=== PATIENT | female | born 1945 | race Caucasian/White ===

== ENCOUNTER → 2018-08-03 | Outpatient (CLI) | payer MEDICARE ==
[2014-06-25 09:28] VITALS: BP 123/63
[~2018-08-03] MED LIST: ALPR0.5T PO; AMLO5TAB10 PO; ATOR20TA58 PO; BENA10TA4 PO; BENA20TA4 PO; MELO15TA23 PO; NAPR-695 PO; PARO10TA57 PO
--- NOTE | 2018-08-03 11:03 | KCIC ---
MRI Lumbar Spine without contrast History: Right lower extremity radiculopathy, low back pain into the right buttock and leg for several months Technique: Multiplanar, multi sequential noncontrast MR imaging was performed of the lumbar spine. Comparison: None Findings: Lumbar vertebral body stature is overall maintained. There is very minimal posterior subluxation L2 relative to L3, negligible posterior subluxation L1 relative L2. There is advanced degenerative disc disease at L5-S1, mild to moderate degenerative disc disease L1-L2, L2-3, L4-5, minimally L3-4. Conus terminates at L1. There is trace L2-3, L1-2, L5-S1 endplate edema likely reactive/degenerative in etiology. There are posterior annular tears L2-3 and L4-5. There is small likely Tarlov cyst at S2 about 0.4 cm. There is 2 cm exophytic T2 hyperintense lesion of the visualized right kidney probably a cyst, not fully evaluated. L1-L2: There is a minimal disc osteophyte complex and bulge. There is mild buckling of the ligamentum flavum and facet degenerative change. There is mild prominence of posterior epidural fat centrally. Neural foramina and spinal canal are overall adequate. L2-L3: There is mild buckling of the ligamentum flavum and right greater than left facet degenerative change. There is mild prominence of posterior epidural fat centrally. There is minimal disc osteophyte complex and bulge superimposed on the posteriorly subluxed L2 vertebral body margin, mild indentation upon the ventral thecal sac greater in the left lateral recess. There is likely component of very small extrusion extending below the intervertebral disc space in the far lateral recess about 2 to 3 mm AP by 3 mm CC by 5 to 6 mm transverse. There is [id number] narrowing of the far left lateral recess, mild narrowing of the far right lateral recess. There is minimal narrowing of the right neural foramen, left neural foramen overall adequate. Disc osteophyte complex is near proximal extraforaminal left L2 nerve root without significant impingement. L3-L4: There is mild buckling of the ligamentum flavum and right greater than left facet degenerative change. There is mild prominence of posterior epidural fat centrally. There is negligible bulge. Spinal canal and neural foramina are overall adequate. L4-L5: There is mild facet degenerative change and buckling of the ligamentum flavum. There is posterior bulge, superimposed shallow more central protrusion. There is mild narrowing of the far lateral recesses greater on the left. Left neural foramen is adequate. There is moderate narrowing of the right neural foramen with contact posterior surface of the exiting right L4 nerve root by facet and ligamentum flavum. L5-S1: There is disc osteophyte complex, superimposed broad likely partially calcified protrusion/contained extrusion greater in the left lateral recess. There is contact of the descending S1 nerve roots in the lateral recesses greater on the left, overall mild left lateral recess stenosis. There is mild facet degenerative change. There is severe bilateral neural foramina compromise by disc osteophyte complex and facet degenerative change with impingement of the exiting L5 nerve roots bilaterally. Impression: 1. There is multilevel lumbar degenerative disc disease greatest at L5-S1. 2. There is mild to moderate left lateral recess stenosis L2-3, mild narrowing of the far lateral recesses greater on the left at L4-5 and of the left lateral recess at L5-S1. 3. There is severe neural foramina compromise bilaterally at L5-S1 with impingement of the exiting L5 nerve roots, moderate narrowing on the right at L4-5. 4. There is very minimal posterior subluxation L2 relative to L3 and to lesser degree of L1 relative to L2. 5. Not fully included, T2 hyperintense lesion right kidney is statistically most likely a cyst. Electronically signed by: Ziyad uMeller MD (08/03/2018 11:00 AM) [facility]
== END | disposition home or self-care (01) ==
LOC: KCIC MRI 09:40
DX: M51.37 Other intervertebral disc degeneration, lumbosacral region (principal); M48.07 Spinal stenosis, lumbosacral region; M43.5X6 Other recurrent vertebral dislocation, lumbar region; M25.78 Osteophyte, vertebrae; M47.817 Spondylosis without myelopathy or radiculopathy, lumbosacral region; M54.10 Radiculopathy, site unspecified
CPT/HCPCS: 72148

== ENCOUNTER → 2018-08-17 | Outpatient (CLI) | payer MEDICARE ==
[2014-06-25 09:28] VITALS: BP 123/63
[~2018-08-17] MED LIST changes: +IOHEXOL 180 MG/ML 10 ML VIAL. ONE; +methylPREDNISolone ACETATE 40 MG/ML VIAL. ONE; +methylPREDNISolone ACETATE 80 MG/ML VIAL. ONE
--- NOTE | 2018-08-18 02:47 | PAIN ---
DATE OF SERVICE: 08/17/2018 INITIAL CONSULTATION FOR PAIN CLINIC CHIEF COMPLAINT: Low back and right lower extremity pain. HISTORY OF PRESENT ILLNESS: This is a 73-year-old female who presents with history of pain for many years in the low back, right lower extremity, worse over the past 6-7 months without any specific injury or action that she is aware of, but increasing pain with daily activities, walking especially and sitting for a prolonged period. The pain is across the low back, into the right lower extremity, posterior gluteus, posterior thigh, posterior calf, into the foot and all the toes on the right side, mostly posteriorly and some in the medial and lateral aspect of the lower leg as well. The patient reports it is sharp, stabbing, throbbing, shooting, changes during the day, worse with activity, worse with walking, standing, sitting for prolonged periods, intermittent in intensity, but always present, radiating to the right leg and none on the left leg. The patient describes the pain in the back is aching, cramping and worse at night. The patient reports it awakens her from sleep at least once or twice a night. It does not affect her bowel or bladder control or ability to walk, but does fatigue very easily with ambulation and sitting for prolonged periods. 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 The patient reports her disability rating from 0 to 10, 10 being the worst, is an 8 in all categories, family and home responsibility, recreation, social activity, occupation and sexual behavior, life support activities and self-care activities. The patient did have MRI scan of the lumbar spine showing multilevel degenerative disk disease, greatest at L5-S1 with moderate left lateral recess stenosis L2-L3, mild narrowing of the far lateral recesses greater on the left L4-L5 and on the left lateral recess at L5-S1 with severe neural foraminal compromise bilaterally at L5-S1 with impingement of the exiting L5 nerve root, moderate narrowing on the right at L4-L5. The patient reports no loss of motor function. Again, no specific pain in the left leg. PAST MEDICAL HISTORY: Significant for previous lung cancer with chemotherapy and radiation about 4 years ago, cigarette smoking, hypertension, arthritis. PREVIOUS SURGERIES: Include cataract extraction as well as cholecystectomy. CURRENT MEDICATIONS: Include atorvastatin, amlodipine, Paxil and meloxicam. ALLERGIES: THE PATIENT IS ALLERGIC TO CODEINE, WHICH CAUSES NAUSEA AND VOMITING. FAMILY HISTORY: Significant for multiple types of cancer. SOCIAL HISTORY: The patient drinks alcohol once very rarely, maybe once or twice a year. Quit smoking 4 years ago, smoked 2 packs a day prior to that. Does not use any illegal, illicit or recreational drugs. 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 REVIEW OF SYSTEMS: The patient's review of systems is positive for those items mentioned in history of present illness. All systems reviewed and otherwise negative. It is complete, full and well documented on the patient's chart. PHYSICAL EXAMINATION: VITAL SIGNS: The patient's blood pressure is 126/73, pulse 90, respirations 18, temperature is 97.9 degrees Fahrenheit. Height is 5 feet 6 inches, weight is 163 pounds. GENERAL: The patient is awake, alert, oriented, appropriate, very pleasant demeanor. HEENT: Head shows normocephalic, atraumatic. Extraocular movements are intact, symmetrical. Oral cavity: Mucous membranes are moist and pink. Dentition is intact. NECK: Shows anterior throat supple without palpable lymphadenopathy noted. Swallow reflex symmetrical. CHEST: Shows normal on inspection. Breath sounds clear to auscultation bilaterally. HEART: Shows S1, S2 clear. No murmurs auscultated. ABDOMEN: Soft, nontender, nondistended. No palpable organomegaly is noted. No rebound or guarding demonstrated. BACK: Shows spine grossly in the midline. Normal appearing thoracic kyphosis and lumbar lordotic curvature. Lumbar paraspinous muscle shows symmetrical on inspection, on palpation shows some moderate tenderness on the lower lumbar distribution, more on the right than the left with palpation, but is symmetrical without evidence of atrophy or hypertrophy. No tenderness over the spinous processes, sacrum or sacroiliac regions. The patient has good rotational motion of lumbar spine both laterally greater than 10 degrees right and left as well as extension greater than 10 degrees, forward flexion 45 degrees without significant pain reported. EXTREMITIES: Lower extremities show deep tendon reflexes at 2+ in the patellar, 1+ tendo calcaneus tendons. Motor exam is strong with 5/5 dorsiflexion, extension, quadriceps and hamstring flexion equal. Peripheral pulses are 1+ posterior tibia. No peripheral edema is noted bilaterally. Straight leg raising noted to be mildly positive about 45 degrees leg raise on the right, but not on the left. Gaenslen's and Carson's maneuvers are negative bilaterally. The patient is able to stand, stand on her toes without difficulty or loss of balance, walks with normal appearing gait, does not appear to favor the right or left lower extremity significantly, not using any assistive devices such as canes or walkers to ambulate. The patient's skin shows warm and dry, good turgor. No edema. No sores, rashes or bruising throughout. IMPRESSION: 1. This is a 73-year-old female with a long history of low back and right lower extremity pain, worse over the past 6-7 months in a radicular fashion. 2. MRI scan of lumbar spine as noted. 3. Hypertension. 4. Arthritis. 5. History of lung cancer. PLAN: Options were discussed with the patient including conservative medical management, physical therapy, interventional techniques. She would like to pursue with interventional techniques. We discussed a lumbar epidural steroid injection using descriptions as well as anatomical models to describe the procedure. Risks were then discussed including, but not limited to, bleeding, infection, possibility of epidural hematoma and subsequent neurological compromise, dural puncture, headaches, spinal cord and/or nerve damage, side effects of steroid medication and poor results regarding pain control. The patient understands and wished to proceed. The patient will return to the clinic in approximately 2 weeks for followup. She was counseled as to return appointment, activity level and side effects to be aware of. DIAGNOSES: Lumbar radiculopathy with lumbar degenerative disk disease, lumbar spinal stenosis. PROCEDURE: Lumbar epidural steroid injection, translaminar approach at L5-S1 level using C-arm fluoroscopic guidance under sterile prep and drape using local anesthetic. MEDICATION INJECTED: A total of 120 mg Depo-Medrol plus 10 mL of preservative-free normal saline and 2 mL of contrast. CONDITION AT DISCHARGE: Stable. The patient tolerated the procedure well, had no complications. JAYCEE GARCIA MD DR: ELOISA/carol JOB#: [id number] / [id number] ecc ELISA VALENCIA
== END | disposition home or self-care (01) ==
LOC: PNCL 08:14
PROVIDERS: ATTEND Anesthesiology
DX: M51.16 Intervertebral disc disorders with radiculopathy, lumbar region (principal); M48.061 Spinal stenosis, lumbar region without neurogenic claudication; I10 Essential (primary) hypertension; M19.90 Unspecified osteoarthritis, unspecified site; Z85.118 Personal history of other malignant neoplasm of bronchus and lung; Z90.49 Acquired absence of other specified parts of digestive tract; Z79.899 Other long term (current) drug therapy; Z88.5 Allergy status to narcotic agent; Z72.89 Other problems related to lifestyle; Z87.891 Personal history of nicotine dependence; Z98.49 Cataract extraction status, unspecified eye; Z96.1 Presence of intraocular lens
CPT/HCPCS: 62323; J1030; J1040; Q9965

== ENCOUNTER → 2018-08-31 | Outpatient (CLI) | payer MEDICARE ==
[2014-06-25 09:28] VITALS: BP 123/63
--- NOTE | 2018-09-01 03:49 | PAIN ---
DATE OF SERVICE: 08/31/2018 PROGRESS NOTE FOR PAIN CLINIC: DIAGNOSES: Lumbar radiculopathy with lumbar spinal stenosis, lumbar degenerative disk disease. HISTORY OF PRESENT ILLNESS: The patient is a 73-year-old female who returns for followup status post lumbar epidural injection x 1. The patient reports about 50% improvement in the low back and right lower extremity. The patient reports still pain in the hip and thigh, into the lower leg as well as the calf with walking and standing. The patient reports also with prolonged sitting, it is noticeable. The patient reports it is average about a 5 on a scale of 10 over the past week, worst is an 8, least is a 1 and is about a 5 today. The patient reports no new motor or sensory deficits, describes the pain as cramping and becoming constant with sitting or prolonged walking in the right leg. No new motor or sensory deficits, no new bowel or bladder incontinence or other complaints. PHYSICAL EXAMINATION: VITAL SIGNS: The patient's blood pressure is 120/67, pulse 74, respirations are 18, temperature is 98.1 degrees Fahrenheit, height is 5 feet 6 inches, weight is 165 pounds. GENERAL: The patient is awake, alert, oriented, appropriate, very pleasant demeanor. HEENT: Head shows normocephalic, atraumatic. Extraocular movements are intact and symmetrical. Oral cavity shows mucous membranes moist and pink. Dentition is intact. NECK: Shows anterior throat supple without palpable lymphadenopathy noted. Swallow reflex symmetrical. Neck shows full rotational motion of cervical spine, both laterally as well as extension and flexion without difficulty. CHEST: Shows normal with inspection. Breath sounds clear to auscultation bilaterally. HEART: Shows S1, S2 clear. No murmurs auscultated. ABDOMEN: Soft, nontender, nondistended. No palpable organomegaly is noted. BACK: Shows spine grossly in the midline, normal-appearing cervical lordotic curvature, thoracic kyphotic curvature and lumbar lordotic curvature. Lumbar paraspinous muscle shows symmetrical on inspection, with palpation shows some moderate tenderness diffusely bilaterally, but only diffusely in the low lumbar distribution without radiation. The patient shows good rotational motion of lumbar spine as well with greater than 10 degrees, right and left lateral rotation, extension greater than 10 degrees, forward flexion 45 degrees without pain reported. EXTREMITIES: The patient's lower extremities show deep tendon reflexes 2+ in the patellar, 1+ tendo-calcaneus tendons are equal. Motor exam is strong with 5/5 dorsiflexion and extension. Peripheral pulses are 1+ posterior tibia. No peripheral edema is noted. Options were discussed with the patient. The patient's old chart was reviewed as her current medication regimen updated. Current review of systems updated today as well. We will proceed with a second lumbar epidural steroid injection today with fluoroscopic guidance. Risks were again discussed including, but not limited to bleeding, infection, possibility of epidural hematoma, subsequent neurological compromise, dural puncture headaches, spinal cord and/or nerve damage, side effects of steroid medication and poor results regarding pain control. The patient understands and wished to proceed. The patient will return to clinic in approximately 2 weeks for followup, was counseled as to return appointment, activity level and side effects to be aware of. DIAGNOSES: Lumbar radiculopathy with lumbar spinal stenosis, lumbar degenerative disk disease. PROCEDURE: Lumbar epidural steroid injection, translaminar approach L5-S1 level using C-arm fluoroscopic guidance under sterile prep and drape using local anesthetic. MEDICATION INJECTED: A total of 120 mg Depo-Medrol plus 10 mL of preservative-free normal saline and 2 mL of contrast. CONDITION AT DISCHARGE: Stable. The patient tolerated the procedure well, had no complications. JAYCEE GARCIA MD DR: ELOISA/carol JOB#: [id number] / [id number]
== END ==
LOC: PNCL 08:11
PROVIDERS: ATTEND Anesthesiology
DX: M51.16 Intervertebral disc disorders with radiculopathy, lumbar region (principal); M48.061 Spinal stenosis, lumbar region without neurogenic claudication
CPT/HCPCS: 62323; J1030; J1040; Q9965

== ENCOUNTER → 2019-03-29 | Outpatient (CLI) | payer MEDICARE ==
[2014-06-25 09:28] VITALS: BP 123/63
[~2019-03-29] MED LIST changes: -BENA10TA4 PO; +BENA10TA6 PO; -IOHEXOL 180 MG/ML 10 ML VIAL. ONE; -methylPREDNISolone ACETATE 40 MG/ML VIAL. ONE; -methylPREDNISolone ACETATE 80 MG/ML VIAL. ONE
--- NOTE | 2019-03-29 11:56 | CARD ---
MR#: [id number] Date of Study: 03/29/2019 Ordering Physician: ELISA VALENCIA, Referring Physician: ELISA VALENCIA, Tech: Emily Del Rosario APPROVED REPORT EXAM: Two-dimensional and M-mode echocardiogram with Doppler and color Doppler. Other Information Quality : GoodHR: 80bpm INDICATION Hypertension/HCVD RISK FACTORS Hypertension Hyperlipidemia Previous smoker 2D DIMENSIONS RVDd3.2 (2.9-3.5cm)Left Atrium(2D)3.5 (1.6-4.0cm) IVSd1.2 (0.7-1.1cm)Aortic Root(2D)3.1 (2.0-3.7cm) LVDd4.3 (3.9-5.9cm)LVOT Diameter2.1 (1.8-2.4cm) PWd1.1 (0.7-1.1cm)LVDs3.0 (2.5-4.0cm) FS (%) 31.0 %SV50.2 ml LVEF(%)59.0 (>50%) Aortic Valve AoV Peak Aman.142.4cm/sAoV VTI29.8cm AO Peak GR.8.1mmHgLVOT Peak Aman.128.1cm/s LVOT VTI 28.92cmAO Mean GR.5mmHg MED (VMAX)2.63xk6ECU (VTI)3.49cm2 AI P 1/2 Fran109jd Mitral Valve MV E Lyrjwgzu74.0cm/sMV DECEL XTHO226vc MV A Tbnxpury811.0cm/sMV E Mean Gr.3mmHg MV WJM09tsM/A Ratio0.7 MVA (PHT)2.97cm2 TDI E/Lateral E'13.5E/Medial E'23.2 Pulmonary Valve PV Peak Qgfrfhnc21.1cm/sPV Peak Grad.3mmHg Tricuspid Valve TR P. Gcekuieb147ph/sRAP ARZCBWLO4zqTs TR Peak Gr.49fcDoLRMW10heEu Pulmonary Vein S1 Pyzbkrzh02.4cm/sD2 Rzzrzqff13.3cm/s PVa [id number] LEFT VENTRICLE The left ventricle is normal size. There is mild concentric left ventricular hypertrophy. The left ve ntricular systolic function is normal. The Ejection Fraction is 55-60%. There is normal LV segmental wall motion. Transmitral Doppler flow pattern is Grade I-abnormal relaxation pattern. RIGHT VENTRICLE The right ventricle is normal size. There is normal right ventricular wall thickness. The right ventr icular systolic function is normal. ATRIA The left atrium size is normal. The right atrium size is normal. The interatrial septum is intact wit h no evidence for an atrial septal defect or patent foramen ovale as noted on 2-D or Doppler imaging. AORTIC VALVE The aortic valve is mildly thickened but opens well. Doppler and Color Flow revealed trace aortic reg urgitation. There is no significant aortic valvular stenosis. MITRAL VALVE The mitral valve is thickened but opens well. There is no evidence of mitral valve prolapse. There is no mitral valve stenosis. Doppler and Color-flow revealed trace mitral regurgitation. TRICUSPID VALVE The tricuspid valve is normal in structure and function. Doppler and Color Flow revealed trace tricus pid regurgitation with an estimated PAP of 29 mmHg. There is no tricuspid valve stenosis. PULMONIC VALVE The pulmonary valve is normal in structure and function. Doppler and Color Flow revealed trace to mil d pulmonic valvular regurgitation. GREAT VESSELS The aortic root is normal in size. The IVC is normal in size and collapses >50% with inspiration. PERICARDIAL EFFUSION There is no evidence of significant pericardial effusion. Critical Notification Critical Value: No <Conclusion> The left ventricular systolic function is normal. The Ejection Fraction is 55-60%. There is normal LV segmental wall motion. Transmitral Doppler flow pattern is Grade I-abnormal relaxation pattern. Trace mitral regurgitation. Trace tricuspid regurgitation with an estimated PAP of 29 mmHg. There is no evidence of significant pericardial effusion. Signed by : Alexis Villatoro, Electronically Approved : 03/29/2019 11:56:23
== END | disposition home or self-care (01) ==
LOC: ECHO 10:21
DX: I37.1 Nonrheumatic pulmonary valve insufficiency (principal); I11.9 Hypertensive heart disease without heart failure; E78.5 Hyperlipidemia, unspecified; Z87.891 Personal history of nicotine dependence
CPT/HCPCS: 93306